=== PATIENT | female | born 1990 | race Caucasian/White ===

== ENCOUNTER 2024-03-09 06:37 | Day surgery (SDC) | payer OTHER, SELFPAY ==
[2024-03-09 12:44] VITALS: BMI 19.9
[2024-03-09 12:47] VITALS: BP 114/74; BMI 19.9
[2024-03-09 13:02] LABS: HCG, Urine Qualitative Screen Negative
--- NOTE | 2024-03-09 14:36 | OR.RPT ---
Operative Report
Operative Report
DATE OF OPERATION: 03/09/2024
SURGEON: Duncan Asencio MD
PREOPERATIVE DIAGNOSIS: Fecal urgency
POSTOPERATIVE DIAGNOSIS: Fecal urgency
OPERATION: Flexible sigmoidoscopy, endoanal ultrasound
ASSISTANTS:
1. None
ANESTHESIA: Propofol sedation
FINDINGS:
1. Flexible sigmoidoscopy reported separately; advanced to distal sigmoid at 30 cm, no mucosal pathology noted
2. Endoanal ultrasound evaluation of anal canal revealed a perineal body of 0.7 mm; defect of about 100 degrees noted in the external and internal anal sphincter anteriorly
SPECIMENS:
1. None
COMPLICATIONS: None
INDICATIONS: The patient is a 33-year-old female who developed fecal urgency after obstetric trauma suffering a grade 4 perineal laceration. This was repaired. However, she developed significant fecal urgency with a Wexner score of 2/20. She
presents for flexible sigmoidoscopy with endoanal ultrasound to evaluate for any anal sphincter defects. The procedure was discussed with the patient in detail, including the risks, benefits and alternatives. Risks described included, but not
limited to, bloating, bleeding, bowel perforation, inability to complete the procedure and missed lesions. The patient understood and agreed to proceed.
PROCEDURE IN DETAIL: The patient was taken to the endoscopy room and placed left lateral position. A timeout was performed verifying the correct patient, procedure, positioning and special equipment. Sedation was induced without complication.
I began the procedure by performing a flexible sigmoidoscopy. This is reported separately. I was able to advance to the distal sigmoid at 30 cm. No mucosal pathology was noted in the mucosa of the sigmoid, rectosigmoid or rectum.
I then began the endoanal ultrasound. I inserted the rigid proctoscope sheath with obturator, then removed the obturator. I inserted the lubricated endoanal ultrasound until I felt resistance. I pulled the sheath back and clipped it into place.
I inflated the balloon until the lumen was flatly juxtaposed to the balloon. I then evaluated the distal rectum and anal canal by moving the crystal proximally and distally. I identified the levator ani sling and marked this as the upper anal
canal. I identified the mid anal canal and marked this. Was an apparent defect in the internal and external anal sphincter that I estimated to measure about 100 degrees anteriorly. I advanced slightly lower and marked this as low mid, and a
similar defect was noted. I advanced the crystal and identified the distal anal canal and marked this. I then inserted a gloved finger in the distal vaginal canal and marked out the perineal body, which measured 0.7 cm. The disruption in the
hyperechoic external anal sphincter in combination with the attenuated perineal body is consistent with a sphincter defect. The balloon was then desufflated and the sheath with endoanal ultrasound was removed.
At this point, the procedure was complete. The patient was awoken without complication. The patient tolerated the procedure well and was transferred to the recovery room in stable condition.
DICTATED BY: Duncan Asencio MD
[2024-03-09 14:43] VITALS: BP 99/68
[2024-03-09 14:45] VITALS: BP 100/62
[2024-03-09 15:00] VITALS: BP 93/73
[2024-03-09 15:20] VITALS: BP 109/68
== END 2024-03-09 15:25 | disposition home or self-care (01) ==
LOC: SDS 06:37
PROVIDERS: Student in an Organized Health Care Education/Training Program; ATTENDING PHYSICIAN Surgery
DX: S31.41XA Laceration without foreign body of vagina and vulva, initial encounter (principal); R15.2 Fecal urgency
CPT/HCPCS: 45341; 81025

== ENCOUNTER → 2024-05-26 08:41 | Outpatient (REF) | payer OTHER, SELFPAY | LOC: WDC 08:41 | PROVIDERS: ATTENDING PHYSICIAN Obstetrics & Gynecology; FAMILY PHYSICIAN Internal Medicine | DX: N63.22 Unspecified lump in the left breast, upper inner quadrant (principal) | CPT/HCPCS: 76642 ==